=== PATIENT | female | born 1990 | race Two or more races ===

== ENCOUNTER 2018-11-11 11:31 | Emergency (ER) | payer OTHER ==
[2018-11-11 11:36] VITALS: BP 122/66
[2018-11-11] MEDS ORDERED: HYDROcod/ACETAM 5/325 MG TABLET PO STA (11:56)
[2018-11-11] MEDS ORDERED: PENICILLIN VK 250 MG TABLET PO STA (11:56)
--- NOTE | 2018-11-11 11:58 | ED Physician Documentation ---
History of Present Illness - Stated complaint Stated Complaint: TOOTH PAIN - Chief complaint Chief Complaint: Heent - History obtained from History obtained from: Patient - History of Present Illness Timing: How many days ago (2) Pain level max: 8 Pain level now: 7 - Additonal information Additional information: 28-year-old female presents to the emergency department stating that she broke her tooth left lower mandible 2 days ago. Now increased pain and swelling. Does not have a dentist. Worse with eating, nothing makes it better Review of Systems Constitutional: denies: Fever, Chills : denies: Now EGA Skin: denies: Rash Musculoskeletal: denies: Neck pain, Back pain Neurologic: denies: Headache PD PAST MEDICAL HISTORY - Past Medical History Past Medical History: No - Past Surgical History Past Surgical History: No - Present Medications Home Medications: Ambulatory Orders Medication Instructions Recorded Confirmed Hydrocodone/Acetaminophen 1 - 2 each PO Q6H PRN #10 tablet 11/11/18 [Hydrocodon-Acetaminophen 5-325] Penicillin V Potassium 500 mg PO Q6HR #40 tablet 11/11/18 - Allergies Allergies/Adverse Reactions: Allergies Allergy/AdvReac Type Severity Reaction Status Date / Time NSAIDS (Non-Steroidal Allergy Emesis Verified 11/11/18 11:35 Anti-Inflamma Sulfa (Sulfonamide Allergy Anaphylaxis Verified 11/11/18 11:35 Antibiotics) tramadol [From Ultram] Allergy Rash Verified 11/11/18 11:35 PD ED PE NORMAL - Vitals Vital signs reviewed: Yes - General General: Alert and oriented X 3, Well developed/nourished - HEENT HEENT: PERRL, Moist mucous membranes - Neck Neck: Supple, no meningeal sign, No adenopathy - Cardiac Cardiac: RRR, Strong equal pulses - Respiratory Respiratory: No respiratory distress, Clear bilaterally - Abdomen Abdomen: Soft, Non tender, Non distended - Derm Derm: Warm and dry - Neuro Neuro: Alert and oriented X 3 - Psych Psych: Normal mood, Normal affect PD ED PE EXPANDED - HEENT HEENT Visual: 1 - tenderness (cracked tooth, mild swelling) Results - Vitals Vitals: Vital Signs - 24 hr 11/11/18 11:34 Temperature 36.5 C Heart Rate 86 Respiratory 16 Rate Blood Pressure 122/66 O2 Saturation 98 Oxygen O2 Source Room air PD MEDICAL DECISION MAKING - ED course Complexity details: considered differential, d/w patient, d/w family ED course: 28-year-old female with a cracked tooth. Will place on antibiotics and pain medication for home. We will follow-up with the dentist for further care. She states she will call dentist in the morning for an appointment. Patient counseled regarding signs and symptoms for which I believe and urgent re- evaluation would be necessary. Patient with good understanding of and agreement to plan and is comfortable going home at this time This document was made in part using voice recognition software. While efforts are made to proofread this document, sound alike and grammatical errors may o ccur. Departure - Departure Disposition: 01 Home, Self Care Clinical Impression: Pain due to dental caries Condition: Good Instructions: ED Tooth Pain Follow-Up: your,dentist within 48 hours [Other] Prescriptions: Penicillin V Potassium 500 mg PO Q6HR #40 tablet Hydrocodone/Acetaminophen [Hydrocodon-Acetaminophen 5-325] 1 - 2 each PO Q6H PRN #10 tablet PRN Reason: pain Comments: Take all antibiotics until gone. Return if you worsen. Is important to follow- up with a dentist within the next 48 hours for further evaluation and care. Do not drink alcohol or drive while on narcotic pain medicine. Note that many narcotic pain relievers also contain tylenol/acetaminophen. Please ensure that your total dose of acetaminophen from all sources does not exceed 3 grams (3000mg) per day. You may constipated on this medication, take a stool softener such as "Colace" twice a day while you are on it. Also recommend a roeu-[id number]-[id number] laxative such as senna or MiraLAX any day that you do not have a bowel movement. If you received narcotic pain medication in the emergency department, do not drive or operate machinery for the next 24 hours. Discharge Date/Time: 11/11/18 12:06
== END 2018-11-11 12:06 | disposition home or self-care (01) ==
LOC: ED 11:31
DX: K02.9 Dental caries, unspecified (principal); K03.81 Cracked tooth
CPT/HCPCS: 99283; A9270

== ENCOUNTER 2019-10-06 19:51 | Emergency (ER) | payer OTHER ==
--- NOTE | 2019-10-06 20:03 | ED Physician Documentation ---
History of Present Illness - Stated complaint Stated Complaint: LIGHTHEADED,WEAKNESS,VOMITTING - Chief complaint Chief Complaint: General - History obtained from History obtained from: Patient - History of Present Illness Timing: How many weeks ago ("few weeks", per patient) Pain level max: 0 Pain level now: 0 Improved by: no ameliorating factors Worsened by: has felt worse since vomiting earlier today - Additonal information Additional information: c/o few weeks of lightheadedness, fatigue, generalized weakness. Symptoms have gradually progressed. Today she had episode of nausea and emesis x 1 and immediately after this felt significantly worse, with generalized myalgias. she no longer feels nauseas. She developed paresthesias of her hands and around her mouth this evening Review of Systems Constitutional: reports: Myalgias, Fatigue. denies: Fever, Chills, Sweats Cardiac: reports: Reviewed and negative Respiratory: reports: Reviewed and negative GI: reports: Nausea (resolved), Vomiting (resolved). denies: Abdominal Pain, Constipation, Diarrhea : reports: Frequency. denies: Dysuria Musculoskeletal: denies: Neck pain Neurologic: reports: Generalized weakness. denies: Focal weakness, Numbness, Headache PD PAST MEDICAL HISTORY - Past Medical History Past Medical History: Yes GI: GERD Psych: ADD/ADHD - Past Surgical History Past Surgical History: No - Present Medications Home Medications: Ambulatory Orders Medication Instructions Recorded Confirmed Hydrocodone/Acetaminophen 1 - 2 each PO Q6H PRN #10 tablet 11/11/18 [Hydrocodon-Acetaminophen 5-325] Penicillin V Potassium 500 mg PO Q6HR #40 tablet 11/11/18 LORazepam [Lorazepam] 0.5 - 1 mg PO TID PRN #20 tablet 10/06/19 - Allergies Allergies/Adverse Reactions: Allergies Allergy/AdvReac Type Severity Reaction Status Date / Time NSAIDS (Non-Steroidal Allergy Emesis Verified 10/06/19 20:00 Anti-Inflamma Sulfa (Sulfonamide Allergy Anaphylaxis Verified 10/06/19 20:00 Antibiotics) tramadol [From Ultram] Allergy Rash Verified 10/06/19 20:00 - Living Situation Living Situation: reports: With family Living Arrangement: reports: At home - Social History Does the pt smoke?: No Smoking Status: Never smoker PD ED PE NORMAL - Vitals Vital signs reviewed: Yes - General General: Alert and oriented X 3, Well developed/nourished, Other (appears anxious, hyperventilating) - HEENT HEENT: PERRL, Moist mucous membranes - Neck Neck: Supple, no meningeal sign - Cardiac Cardiac: No murmur - Respiratory Respiratory: No respiratory distress, Clear bilaterally - Abdomen Abdomen: Soft, Non tender PD ED PE EXPANDED - Cardiac Cardiac: Tachy, Regular Rhythm Results - Vitals Vitals: Vital Signs - 24 hr 10/06/19 21:35 Temperature 36.9 C Heart Rate 88 Respiratory 12 Rate Blood Pressure 111/70 O2 Saturation 99 Oxygen O2 Source Room air - Labs Labs: Laboratory Tests 10/06/19 10/06/19 20:30 20:30 WBC 10.4 RBC 4.19 L Hgb 11.3 L Hct 35.1 L MCV 83.8 MCH 27.0 MCHC 32.2 RDW 14.7 Plt Count 395 MPV 11.1 H Neut # (Auto) 7.8 H Lymph # (Auto) 1.7 Coles # (Auto) 0.6 Eos # (Auto) 0.1 Baso # (Auto) 0.1 Absolute Nucleated RBC 0.00 Nucleated RBC % 0.0 Sodium 138 Potassium 3.3 L Chloride 108 Carbon Dioxide 18 L Anion Gap 12.0 BUN 9 Creatinine 1.0 Estimated GFR (MDRD) 65 L Glucose 100 Calcium 8.6 Total Bilirubin 0.5 AST 22 ALT 26 Alkaline Phosphatase 70 Total Protein 7.1 Albumin 4.0 Globulin 3.1 Albumin/Globulin Ratio 1.3 Lipase 33 PD MEDICAL DECISION MAKING - ED course Complexity details: reviewed results, re-evaluated patient, considered differential, d/w patient Departure - Departure Disposition: 01 Home, Self Care Clinical Impression: Lightheadedness, Fatigue Condition: Good Instructions: ED Weakness [facility] Follow-Up: Umang uSe PA-C [Primary Care Provider] - Prescriptions: LORazepam [Lorazepam] 0.5 - 1 mg PO TID PRN #20 tablet PRN Reason: Anxiety Discharge Date/Time: 10/06/19 21:52
[2019-10-06] MEDS ORDERED: LORazepam 1 MG TABLET PO STA ×2 (20:20→21:45)
[2019-10-06 20:34] LABS: BASOPHILS # (AUTO) 0.1 10^3/uL (0.0-0.1); BASOPHILS % (AUTO) 1.2 %; EOSINOPHILS # (AUTO) 0.1 10^3/uL (0.0-0.7); EOSINOPHILS % (AUTO) 1.3 %; HGB - HEMOGLOBIN 11.3 g/dL (12.0-16.0); LYMPHOCYTES # (AUTO) 1.7 10^3/uL (1.5-3.5); LYMPHOCYTES % (AUTO) 16.2 %; MEAN CORPUSCULAR HGB CONC 32.2 g/dL (32.0-36.0); MEAN CORPUSCULAR VOLUME 83.8 fL (81.0-99.0); MEAN PLATELET VOLUME 11.1 fL (7.9-10.8); MONOCYTES # (AUTO) 0.6 10^3/uL (0.0-1.0); MONOCYTES % (AUTO) 5.7 %; NEUTROPHILS # (AUTO) 7.8 10^3/uL (1.5-6.6); NEUTROPHILS % (AUTO) 75.3 %; PLT - PLATELET COUNT 395 10^3/uL (130-450); RED BLOOD COUNT 4.19 10^6/uL (4.20-5.40); RED CELL DISTRIBUTION WIDTH 14.7 % (12.0-15.0); WHITE BLOOD COUNT 10.4 x10^3/uL (4.8-10.8)
[2019-10-06 20:48] LABS: ALBUMIN/GLOBULIN RATIO 1.3 (1.0-2.2); BILIRUBIN,TOTAL 0.5 mg/dL (0.2-1.0); CALCIUM 8.6 mg/dL (8.5-10.3); TOTAL PROTEIN 7.1 g/dL (6.7-8.2)
[2019-10-06 21:36] VITALS: BP 111/70
== END 2019-10-06 21:52 | disposition home or self-care (01) ==
LOC: ED 19:51
DX: R42 Dizziness and giddiness (principal); R53.83 Other fatigue; R11.2 Nausea with vomiting, unspecified
CPT/HCPCS: 36415; 80053; 83690; 85025; 99283; 99284; J8499

== ENCOUNTER 2019-12-13 08:07 | Emergency (ER) | payer OTHER ==
[2019-12-13 08:14] VITALS: BP 96/56
--- NOTE | 2019-12-13 08:36 | ED Physician Documentation ---
PD HPI URI - Stated complaint Stated Complaint: CHEST PAIN, NECK PAIN, FEVER, COUGH - Chief complaint Chief Complaint: Resp - History obtained from History obtained from: Patient - History of Present Illness Timing - onset: Yesterday Timing duration: Days (2) Timing details: Abrupt onset, Still present Associated symptoms: Fever, Nasal congestion, Dry cough, Chest pain (with cough and breathing), Dyspnea, Other (moderate headache). No: Sore throat, Swollen nodes, NVD Contributing factors: Sick contact (Her son was ill for the past week and diagnosed by nasal swab with influenza B 4 days ago. He has had some cough fevers and congestion but is starting to improve. He is just taken [id number] medicines.). No: Travel, Immunocompromised, COPD / asthma Similar symptoms before: Has not had sx before Review of Systems Constitutional: reports: Fever, Chills, Myalgias Nose: reports: Congestion Cardiac: denies: Chest pain / pressure Respiratory: reports: Cough GI: reports: Nausea, Vomiting. 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 HEENT: None Psych: ADD/ADHD Musculoskeletal: None Derm: None - Past Surgical History Past Surgical History: No - Present Medications Home Medications: Ambulatory Orders Medication Instructions Recorded Confirmed Benzonatate [Tessalon Perle] 100 mg PO TID PRN #30 capsule 12/13/19 Escitalopram Oxalate [Lexapro] 30 mg PO 12/13/19 Hydrocodone/Acetaminophen 1 each PO Q6H PRN #20 tablet 12/13/19 [Hydrocodon-Acetaminophen 5-325] Ondansetron Odt [Zofran] 4 mg TL Q6H PRN #20 tablet 12/13/19 Oseltamivir [Tamiflu] 75 mg PO BID #10 capsule 12/13/19 dexAMETHasone [Decadron] 4 mg PO DAILY #5 tablet 12/13/19 - Allergies Allergies/Adverse Reactions: Allergies Allergy/AdvReac Type Severity Reaction Status Date / Time NSAIDS (Non-Steroidal Allergy Emesis Verified 12/13/19 08:14 Anti-Inflamma Sulfa (Sulfonamide Allergy Anaphylaxis Verified 12/13/19 08:14 Antibiotics) tramadol [From Ultram] Allergy Rash Verified 12/13/19 08:14 - Social History Does the pt smoke?: No Smoking Status: Never smoker Does the pt drink ETOH?: No Does the pt have substance abuse?: No - Immunizations Immunizations are current?: Yes - POLST Patient has POLST: No PD ED PE NORMAL - Vitals Vital signs reviewed: Yes - General General: Alert and oriented X 3, No acute distress, Well developed/nourished - HEENT HEENT: Moist mucous membranes, Pharynx benign - Neck Neck: Supple, no meningeal sign, No adenopathy - Cardiac Cardiac: RRR, No murmur - Respiratory Respiratory: Clear bilaterally - Abdomen Abdomen: Soft, Non tender - Derm Derm: Normal color, Warm and dry - Neuro Neuro: Alert and oriented X 3, No motor deficit, Normal speech Results - Vitals Vitals: Oxygen O2 Source Room air - Labs Labs: Laboratory Tests 12/13/19 08:18 Influenza A (Rapid) Negative Influenza B (Rapid) POSITIVE H PD MEDICAL DECISION MAKING - ED course Complexity details: considered differential (symptoms c/w flu B), d/w patient Departure - Departure Disposition: 01 Home, Self Care Clinical Impression: Influenza B, Cough Chest pain Qualifiers: Chest pain type: other chest pain Qualified Code(s): R07.89 - Other chest pain Condition: Stable Record reviewed to determine appropriate education?: Yes Instructions: ED Flu Follow-Up: Umang Sue PA-C [Primary Care Provider] - Prescriptions: Benzonatate [Tessalon Perle] 100 mg PO TID PRN #30 capsule PRN Reason: Cough dexAMETHasone [Decadron] 4 mg PO DAILY #5 tablet Hydrocodone/Acetaminophen [Hydrocodon-Acetaminophen 5-325] 1 each PO Q6H PRN #20 tablet PRN Reason: pain Ondansetron Odt [Zofran] 4 mg TL Q6H PRN #20 tablet PRN Reason: Nausea / Vomiting Oseltamivir [Tamiflu] 75 mg PO BID #10 capsule Comments: You have influenza B. Your chest x-ray is clear so no signs of pneumonia to her at this time. We can help with the symptoms by using the Tamiflu antiviral and that can help take the edge off the symptoms. Decadron steroid for inflammation generally should help quite a bit as well. Ondansetron as needed for nausea. Tessalon if needed for cough. Stay well- hydrated and use Tylenol or ibuprofen for fevers and pains. Add hydrocodone if needed for worse pain. Recheck if not improving well over the next few days. Discharge Date/Time: 12/13/19 10:05
[2019-12-13] MEDS ORDERED: BENZONATATE 100 MG CAPSULE PO STA (08:51)
[2019-12-13] MEDS ORDERED: CHERRY SYRUP 10 ML UDC PO ONE (08:51)
[2019-12-13] MEDS ORDERED: ONDANSETRON ODT 4 MG TABLET TL STA (08:51)
[2019-12-13] MEDS ORDERED: DEXAMETHASONE 10 MG/ML VIAL PO STA (08:51)
[2019-12-13] MEDS ORDERED: HYDROcod/ACETAM 5/325 MG TABLET PO STA (08:51)
--- NOTE | 2019-12-13 09:40 | XRAY Report ---
Reason: dyspnea/ cough/chest pain Procedure Date: 12/13/2019 Accession Number: [id number] / [id number] Procedure: XR - Chest 2 View X-Ray CPT Code: 85160 Final Report FULL RESULT: EXAM: CHEST RADIOGRAPHY EXAM DATE: 12/13/2019 09:25 AM. CLINICAL HISTORY: Dyspnea/ cough/chest pain. COMPARISON: None. TECHNIQUE: 2 views. FINDINGS: Lungs/Pleura: No focal opacities evident. No pleural effusion. No pneumothorax. Normal volumes. Mediastinum: Heart and mediastinal contours are unremarkable. Other: Unremarkable bony structures. Surgical clips right upper quadrant. IMPRESSION: Normal 2-view chest radiography. RADIA
== END 2019-12-13 10:05 | disposition home or self-care (01) ==
LOC: ED 08:07
DX: J10.1 Influenza due to other identified influenza virus with other respiratory manifestations (principal); R07.89 Other chest pain
CPT/HCPCS: 71046; 87275; 87276; 99284; A9270; Q0162

== ENCOUNTER 2020-02-27 17:28 | Emergency (ER) | payer OTHER ==
[2020-02-27 18:00] LABS: BILIRUBIN,URINE NEGATIVE (NEGATIVE); GLUCOSE, URINE (UA) NEGATIVE (NEGATIVE); KETONES,URINE (UA) NEGATIVE (NEGATIVE); LEUKOCYTE ESTERASE, URINE NEGATIVE (NEGATIVE); NITRITE,URINE NEGATIVE (NEGATIVE); OCCULT BLOOD,URINE NEGATIVE (NEGATIVE); PH,URINE 6.5 PH (5.0-7.5); PROTEIN,URINE NEGATIVE (NEGATIVE); UROBILINOGEN,URINE 0.2 (NORMAL) E.U./dL (NORMAL)
[2020-02-27 18:03] LABS: CLARITY,URINE CLEAR (CLEAR)
[2020-02-27 18:04] LABS: HCG UR QUAL NEGATIVE
[2020-02-27] MEDS ORDERED: HYDROcod/ACETAM 5/325 MG TABLET PO STA (18:24)
[2020-02-27] MEDS ORDERED: ONDANSETRON ODT 4 MG TABLET TL STA (18:24)
--- NOTE | 2020-02-27 18:26 | ED Physician Documentation ---
PD HPI FEMALE - Stated complaint Stated Complaint: PELVIC/BACK PX - Chief complaint Chief Complaint: UTI - History obtained from History obtained from: Patient (79-year-old woman with history of E sure control, ovarian cysts. Last menses was about 2 weeks ago, slightly longer than normal but otherwise normal and at normal time. She had 2 days of pelvic pressure radiating to the back associated with mild nausea. Pain is worse if she bends forward or presses on the bladder area. No fevers.) Review of Systems Constitutional: denies: Fever, Chills GI: reports: Abdominal Pain, Nausea. 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 HEENT: None Psych: ADD/ADHD Musculoskeletal: None Derm: None - Past Surgical History Past Surgical History: No - Present Medications Home Medications: Ambulatory Orders Medication Instructions Recorded Confirmed Benzonatate [Tessalon Perle] 100 mg PO TID PRN #30 capsule 12/13/19 Escitalopram Oxalate [Lexapro] 30 mg PO 12/13/19 Hydrocodone/Acetaminophen 1 each PO Q6H PRN #20 tablet 12/13/19 [Hydrocodon-Acetaminophen 5-325] Ondansetron Odt [Zofran] 4 mg TL Q6H PRN #20 tablet 12/13/19 Oseltamivir [Tamiflu] 75 mg PO BID #10 capsule 12/13/19 dexAMETHasone [Decadron] 4 mg PO DAILY #5 tablet 12/13/19 Hydrocodone/Acetaminophen 1 - 2 each PO Q6H PRN #10 tablet 02/27/20 [Hydrocodon-Acetaminophen 5-325] - Allergies Allergies/Adverse Reactions: Allergies Allergy/AdvReac Type Severity Reaction Status Date / Time NSAIDS (Non-Steroidal Allergy Emesis Verified 02/27/20 17:37 Anti-Inflamma Sulfa (Sulfonamide Allergy Anaphylaxis Verified 02/27/20 17:37 Antibiotics) tramadol [From Ultram] Allergy Rash Verified 02/27/20 17:37 - Social History Does the pt smoke?: No Smoking Status: Never smoker Does the pt drink ETOH?: No Does the pt have substance abuse?: No - Immunizations Immunizations are current?: Yes - POLST Patient has POLST: No PD ED PE NORMAL - Vitals Vital signs reviewed: Yes - General General: Alert and oriented X 3, No acute distress - HEENT HEENT: PERRL, EOMI - Neck Neck: Supple, no meningeal sign, No bony TTP - Abdomen Abdomen: Normal bowel sounds, Soft, Other (Minimal pelvic tenderness, left slightly more than right. No surgical signs.) - Neuro Neuro: Alert and oriented X 3, Normal speech Results - Vitals Vitals: Vital Signs - 24 hr 02/27/20 17:37 Temperature 36.7 C Heart Rate 98 Respiratory 15 Rate Blood Pressure 111/66 O2 Saturation 98 Oxygen O2 Source Room air - Labs Labs: Laboratory Tests 02/27/20 02/27/20 17:47 17:47 Urine Color YELLOW Urine Clarity CLEAR Urine pH 6.5 Ur Specific [place] <=1.005 <=1.005 Urine Protein NEGATIVE Urine Glucose (UA) NEGATIVE Urine Ketones NEGATIVE Urine Occult Blood NEGATIVE Urine Nitrite NEGATIVE Urine Bilirubin NEGATIVE Urine Urobilinogen 0.2 (NORMAL) Ur Leukocyte Esterase NEGATIVE Ur Microscopic Review NOT INDICATED Urine Culture Comments NOT INDICATED Urine HCG, Qual NEGATIVE - Rads (name of study) Pelvic ultrasound Radiology: EMP read contemporaneously (Right ovarian 2.7 cm hemorrhagic cyst versus endometrioma. Uterine fibroid) Departure - Departure Disposition: 01 Home, Self Care Clinical Impression: Fibroid Ovarian cyst Qualifiers: Laterality: right Qualified Code(s): N83.201 - Unspecified ovarian cyst, right side Condition: Good Record reviewed to determine appropriate education?: Yes Instructions: ED Cyst Ovarian Follow-Up: [facility] [Provider Group] - Within 1 week Prescriptions: Hydrocodone/Acetaminophen [Hydrocodon-Acetaminophen 5-325] 1 - 2 each PO Q6H PRN #10 tablet PRN Reason: pain Comments: Today you were seen for pelvic pain, you were a little concerned about urinary tract infection but your urine was normal. An ultrasound showed both uterine fibroid as well as a right ovarian cyst versus the Shavon. Follow-up with the obstetrics/gynecology clinic for further evaluation and treatment. Return if worse.
--- NOTE | 2020-02-27 20:00 | Ultrasound Report ---
Reason: pelvic pain, L Procedure Date: 02/27/2020 Accession Number: [id number] / [id number] Procedure: US - Pelvic w/Transvag+Doppler Comp CPT Code: Final Report FULL RESULT: EXAM: PELVIC ULTRASOUND WITH DOPPLERS CLINICAL HISTORY: Pelvic pain, left. COMPARISON: None. TECHNIQUE: Realtime transabdominal imaging performed to identify the uterus and adnexa and as an overview of other pelvic structures, followed by transvaginal imaging for better assessment of the endometrium and adnexa, with static image documentation. Color flow imaging and Doppler spectral analysis was performed to evaluate blood flow to the ovaries given pelvic pain and clinical concern for ovarian torsion. FINDINGS: Uterus: 7.6 x 3.9 x 4.5 cm, volume 70.2 cc. Anteverted position. Normal overall size and echotexture. Bilateral Essure devices noted. Masses: There is a 1.3 x 1.3 x 1.4 cm anterior fundal intramural/submucosal fibroid. Endometrium: 9 mm. Normal. Cervix: Unremarkable. Right Ovary: 4.2 x 2.8 x 3.7 cm, volume 23.1 cc. Normal echotexture. Arterial and venous blood flow are present. PSV 11.2 cm/sec. RI 0.5. Adnexa: There is a 2.7 x 2.5 x 2.2 cm cyst within the ovary containing fluid-fluid levels. No flow seen within the cyst. Left Ovary: 3.1 x 1.7 x 2.4 cm, volume 6.5 cc. Normal echotexture. Arterial and venous blood flow are present. PSV 4.2 cm/sec. RI 0.6. Adnexa are unremarkable. Free Fluid: None. Other: None. IMPRESSION: 1. Right ovarian 2.7 cm hemorrhagic cyst versus endometrioma. 2. Arterial and venous blood flow are present to the ovaries bilaterally. 3. Uterine fibroid. 4. Essure devices noted. RADIA
[2020-02-27] MEDS ORDERED: HYDROcod/ACET 5/325 Prepack 4 PO STA (20:12)
[2020-02-27 20:50] VITALS: BP 112/68
== END 2020-02-27 20:49 | disposition home or self-care (01) ==
LOC: ED 17:28
DX: D25.9 Leiomyoma of uterus, unspecified (principal); N83.201 Unspecified ovarian cyst, right side; Z97.5 Presence of (intrauterine) contraceptive device
CPT/HCPCS: 76830; 76856; 81003; 81025; 93975; 99284; A9270; Q0162; 81001; 87086

== ENCOUNTER 2020-03-09 17:20 | Emergency (ER) | payer OTHER ==
[2020-03-09 17:26] VITALS: BP 115/72
--- NOTE | 2020-03-09 17:37 | ED Physician Documentation ---
PD HPI UPPER EXT INJURY - Stated complaint Stated Complaint: L HAND LAC - Chief complaint Chief Complaint: Laceration - History obtained from History obtained from: Patient - History of Present Illness Location: Left, Finger (Thumb) Type of injury: Laceration Where injury occurred: Home Timing - onset: How many hours ago (1) Timing - duration: Hours (1) Timing - details: Abrupt onset Pain level max: 2 Pain level now: 1 Improved by: Rest Worsened by: Moving, Palpating - Additonal information Additional information: Patient is right-handed. Tetanus up-to-date. 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 HEENT: None Psych: ADD/ADHD Musculoskeletal: None Derm: None - Past Surgical History Past Surgical History: No - Present Medications Home Medications: Ambulatory Orders Medication Instructions Recorded Confirmed Escitalopram [Lexapro] 30 mg PO DAILY 03/09/20 03/09/20 LORazepam [Ativan] 0.5 mg PO Q6H PRN 03/09/20 03/09/20 Lisdexamfetamine Dimesylate 30 mg PO DAILY 03/09/20 03/09/20 [Vyvanse] - Allergies Allergies/Adverse Reactions: Allergies Allergy/AdvReac Type Severity Reaction Status Date / Time NSAIDS (Non-Steroidal Allergy Emesis Verified 03/09/20 17:37 Anti-Inflamma Sulfa (Sulfonamide Allergy Anaphylaxis Verified 03/09/20 17:37 Antibiotics) tramadol [From Ultram] Allergy Rash Verified 03/09/20 17:37 - Social History Does the pt smoke?: No Smoking Status: Never smoker Does the pt drink ETOH?: No Does the pt have substance abuse?: No - Immunizations Immunizations are current?: Yes - POLST Patient has POLST: No PD ED PE NORMAL - Vitals Vital signs reviewed: Yes - General General: Alert and oriented X 3, No acute distress - HEENT HEENT: Moist mucous membranes - Derm Derm: Warm and dry - Neuro Neuro: Alert and oriented X 3 PD ED PE EXPANDED - Extremities FREDDY UE/Hands Visual: 1 - laceration (Superficial, 1 cm. Neurovascular intact. No bleeding.) Results - Vitals Vitals: Vital Signs - 24 hr 03/09/20 17:23 Temperature 36.5 C Heart Rate 125 H Respiratory 16 Rate Blood Pressure 115/72 O2 Saturation 99 Oxygen O2 Source Room air Procedures - Laceration (location) Left thumb Length in cm: 1 Wound type: Linear, Superficial, Clean Neurovascular status: Sensory intact, Motor intact, Vascular intact Tendon involvement: Tendon intact Wound Preparation: Irrigated copiously NS Skin layer closure: Dermabond Other: Patient tolerated well, No complications, Neurovascular intact, Tetanus UTD Complexity: Simple PD MEDICAL DECISION MAKING - ED course Complexity details: considered differential, d/w patient ED course: Wound repaired with Dermabond. No indication for sutures. Warnings of infection and instructions on wound care given at bedside. Also counseled on how to minimize scarring. Patient counseled regarding signs and symptoms for which I believe and urgent re-evaluation would be necessary. Patient with good understanding of and agreement to plan and is comfortable going home at this time This document was made in part using voice recognition software. While efforts are made to proofread this document, sound alike and grammatical errors may occur. Patient is right-handed and her tetanus is up-to-date Departure - Departure Disposition: 01 Home, Self Care Clinical Impression: Thumb laceration Qualifiers: Encounter type: initial encounter Damage to nail status: unspecified Foreign body presence: without foreign body Laterality: left Qualified Code(s): S61.012A - Laceration without foreign body of left thumb without damage to nail, initial encounter Condition: Good Instructions: ED Laceration Ext Skin Glue Follow-Up: Ofelia Lazaro ARNP, GEOCHEMIST-C [Primary Care Provider] - As Needed Comments: Return if you notice redness, swelling or drainage from the wound. The glue will dissolve and fall off on its own. Keep the wound clean. Do not apply ointment as this may dissolve the glue. Discharge Date/Time: 03/09/20 17:59
[2020-03-09] MEDS ORDERED: ACETAMINOPHEN 325 MG TABLET PO STA (17:53)
== END 2020-03-09 17:59 | disposition home or self-care (01) ==
LOC: ED 17:20
DX: S61.012A Laceration without foreign body of left thumb without damage to nail, initial encounter (principal); W26.0XXA Contact with knife, initial encounter; Y92.009 Unspecified place in unspecified non-institutional (private) residence as the place of occurrence of the external cause
CPT/HCPCS: 12001; 99282; A9270

== ENCOUNTER 2020-05-12 07:00 | Outpatient (CLI) | payer OTHER ==
[2020-05-12 12:28] LABS: BUN - BLOOD UREA NITROGEN 9 mg/dL (6-20); CALCIUM 8.6 mg/dL (8.5-10.3); CARBON DIOXIDE - CO2 24 mmol/L (21-32); CHLORIDE 107 mmol/L (101-111); CHOL/HDL RATIO 3.3 (<4.4); CHOLESTEROL 190 mg/dL; CREATININE 0.9 mg/dL (0.4-1.0); GLUCOSE 96 mg/dL (70-100); HDL CHOLESTEROL 58 mg/dL; LDL CHOLESTEROL,CALCULATED 108 mg/dL; LDL/HDL RATIO 1.9 (<4.4); SODIUM 138 mmol/L (135-145); VLDL CHOLESTEROL 24 mg/dL
[2020-05-12 12:34] LABS: THYROID STIMULATING HORMONE 2.96 uIU/mL (0.34-5.60)
[2020-05-12 12:37] LABS: FREE T3 3.63 pg/mL (2.5-3.9)
[2020-05-12 12:38] LABS: FREE T4 (FREE THYROXINE) 0.64 ng/dL (0.58-1.64)
== END 2020-05-12 23:59 | disposition home or self-care (01) ==
LOC: LAB.WCP 07:00
PROVIDERS: ATTEND Psychiatry & Neurology Psychiatry
DX: Z79.899 Other long term (current) drug therapy (principal)
CPT/HCPCS: 36415; 80048; 80061; 83721; 84439; 84443; 84481

== ENCOUNTER 2020-06-27 14:00 | Emergency (ER) | payer OTHER ==
--- NOTE | 2020-06-27 15:17 | ED Physician Documentation ---
PD HPI SKIN - Stated complaint Stated Complaint: RASH - BILAT ARMS, NECK, FACE - Chief complaint Chief Complaint: Wound - History obtained from History obtained from: Patient - History of Present Illness Timing - onset: How many weeks ago (4) Timing - duration: Weeks (4) Timing - details: Gradual onset, Still present, Waxing and waning Location: Face, RUE, LUE Quality / character: Itchy, Discolored, Crusted, Swelling Associated symptoms: Facial swelling. No: Fever, Myalgias, Joint pain, Headache, Dyspnea, Abd pain, N/V/D, Urinary sx Contributing factors: Unknown. No: Exposed to medication, Exposed to food, Exposed to soap / lotion, Exposed to Poison daria/oak, Insect bite /sting, Recent illness Similar symptoms before: No diagnosis Recently seen: Clinic - Additional information Additional information: 29-year-old female reports that she was placed on to some prednisone for a rash that she had in her elbows and around her eyes and she improved with the prednisone and then several days later began to develop symptoms again. She felt that the symptoms were almost completely gone. Review of Systems Constitutional: denies: Fever Eyes: reports: Irritation. denies: Decreased vision Ears: denies: Ear pain Nose: reports: Congestion. 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 : None HEENT: None Psych: ADD/ADHD Musculoskeletal: None Derm: None - Past Surgical History Past Surgical History: No General: Cholecystectomy Ortho: Shoulder arthroplasty /VICE PRESIDENT UNDERWRITING: Other - Present Medications Home Medications: Ambulatory Orders Medication Instructions Recorded Confirmed Escitalopram [Lexapro] 30 mg PO DAILY 03/09/20 03/09/20 LORazepam [Ativan] 0.5 mg PO Q6H PRN 03/09/20 03/09/20 Lisdexamfetamine Dimesylate 30 mg PO DAILY 03/09/20 03/09/20 [Vyvanse] predniSONE [Deltasone] 10 mg PO ONCE #26 tablet 06/27/20 - Allergies Allergies/Adverse Reactions: Allergies Allergy/AdvReac Type Severity Reaction Status Date / Time NSAIDS (Non-Steroidal Allergy Emesis Verified 06/27/20 14:10 Anti-Inflamma Sulfa (Sulfonamide Allergy Anaphylaxis Verified 06/27/20 14:10 Antibiotics) tramadol [From Ultram] Allergy Rash Verified 06/27/20 14:10 - Social History Does the pt smoke?: No Smoking Status: Never smoker Does the pt drink ETOH?: No Does the pt have substance abuse?: No - Immunizations Immunizations are current?: Yes - POLST Patient has POLST: No PD ED PE NORMAL - Vitals Vital signs reviewed: Yes (normal ) - General General: Alert and oriented X 3, No acute distress, Well developed/nourished - HEENT HEENT: Atraumatic, PERRL, EOMI, Ears normal, Moist mucous membranes, Pharynx benign, Dentition benign, Other (There is superficial erythema to the eye lids bilaterally ) - Neck Neck: Supple, no meningeal sign, No bony TTP - Cardiac Cardiac: RRR, No murmur - Respiratory Respiratory: No respiratory distress, Clear bilaterally - Abdomen Abdomen: Soft, Non tender - Back Back: No CVA TTP, No spinal TTP - Derm Derm: Normal color, Warm and dry, Other (There is a petechial rash in the antecubital bilaterally and on the right side of the neck. Consistent with atopic dermatitis or eczema. 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, No motor deficit, No sensory deficit, Normal speech Eye Opening: Spontaneous Motor: Obeys Commands Verbal: Oriented GCS Score: 15 - Psych Psych: Normal mood, Normal affect Results - Vitals Vitals: Vital Signs - 24 hr 06/27/20 06/27/20 14:05 15:34 Temperature 36.7 C 36.6 C Heart Rate 101 H 88 Respiratory 12 16 Rate Blood Pressure 93/69 97/62 O2 Saturation 100 99 Oxygen O2 Source Room air PD MEDICAL DECISION MAKING - ED course Complexity details: reviewed old records, considered differential, d/w patient ED course: 29-year-old female with a facial rash and antecubital rash consistent with atopic dermatitis does not have a trigger for this she does have a family history of this she is placed back on prednisone on an 8-day taper. Departure - Departure Disposition: 01 Home, Self Care Clinical Impression: Atopic dermatitis Qualifiers: Atopic dermatitis type: flexural Qualified Code(s): L20.89 - Other atopic dermatitis Condition: Stable Instructions: ED Dermatitis Atopic Eczema Follow-Up: Ofelia Lazaro ARNP, FELLER MACHINE OPERATOR-C [Primary Care Provider] - Prescriptions: predniSONE [Deltasone] 10 mg PO ONCE #26 tablet Discharge Date/Time: 06/27/20 15:35
[2020-06-27 15:36] VITALS: BP 97/62
== END 2020-06-27 15:35 | disposition home or self-care (01) ==
LOC: ED 14:00
DX: L20.89 Other atopic dermatitis (principal); Z84.0 Family history of diseases of the skin and subcutaneous tissue
CPT/HCPCS: 99282; 99284

== ENCOUNTER 2020-08-24 12:45 | Emergency (ER) | payer OTHER ==
[2020-08-24 14:59] LABS: ALBUMIN 3.4 g/dL (3.2-5.5); ALBUMIN/GLOBULIN RATIO 1.2 (1.0-2.2); ALKALINE PHOSPHATASE 44 IU/L (42-121); ALT ALANINE AMINOTRANSFERASE 14 IU/L (10-60); AST ASPARTATE AMINOTRANSFERASE 17 IU/L (10-42); BILIRUBIN,TOTAL 0.3 mg/dL (0.2-1.0); BUN - BLOOD UREA NITROGEN 10 mg/dL (6-20); CALCIUM 8.5 mg/dL (8.5-10.3); CARBON DIOXIDE - CO2 26 mmol/L (21-32); CHLORIDE 104 mmol/L (101-111); CREATININE 0.8 mg/dL (0.4-1.0); GLUCOSE 121 mg/dL (70-100); SODIUM 139 mmol/L (135-145); TOTAL PROTEIN 6.2 g/dL (6.7-8.2)
[2020-08-24 15:00] LABS: CRP - C-REACTIVE PROTEIN < 1.0 mg/dL (0-1.0)
--- NOTE | 2020-08-24 15:05 | ED Physician Documentation ---
History of Present Illness - Stated complaint Stated Complaint: HEAD PX/DIZZY - Chief complaint Chief Complaint: General - History obtained from History obtained from: Patient - History of Present Illness Timing: Other (several months) Pain level max: 7 Pain level now: 4 - Additonal information Additional information: 30-year-old female presents to the emergency department stating that she has had intermittent rashes to her neck and head and face for the past several months. Resolves with steroids. Has also had intermittent pain from her neck down to her right arm. Nothing makes it better or worse. Intermittent headaches. No visual changes. No taste changes. She stopped prednisone last week and the symptoms recurred. She is awaiting a dermatology referral. Has been being followed by this by the [facility]. 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 - Past Surgical History Past Surgical History: No General: Cholecystectomy Ortho: Shoulder arthroplasty /HEALTHCARE APPLICATIONS ANALYST: Other - Present Medications Home Medications: Ambulatory Orders Medication Instructions Recorded Confirmed Escitalopram [Lexapro] 30 mg PO DAILY 03/09/20 03/09/20 LORazepam [Ativan] 0.5 mg PO Q6H PRN 03/09/20 03/09/20 Lisdexamfetamine Dimesylate 30 mg PO DAILY 03/09/20 03/09/20 [Vyvanse] predniSONE [Deltasone] 10 mg PO ONCE #26 tablet 06/27/20 HYDROcod/ACETAM 5/325 [[place] 5/325] 1 - 2 ea PO Q6H PRN #12 tablet 08/24/20 predniSONE [Deltasone] 10 mg PO [id number] #42 tab 08/24/20 - Allergies Allergies/Adverse Reactions: Allergies Allergy/AdvReac Type Severity Reaction Status Date / Time NSAIDS (Non-Steroidal Allergy Emesis Verified 08/24/20 13:00 Anti-Inflamma Sulfa (Sulfonamide Allergy Anaphylaxis Verified 08/24/20 13:00 Antibiotics) tramadol [From Ultram] Allergy Rash Verified 08/24/20 13:00 - Social History Does the pt smoke?: No Smoking Status: Never smoker Does the pt drink ETOH?: No Does the pt have substance abuse?: No - Immunizations Immunizations are current?: Yes - POLST Patient has POLST: No PD ED PE NORMAL - Vitals Vital signs reviewed: Yes - General General: Alert and oriented X 3, No acute distress - HEENT HEENT: PERRL, Moist mucous membranes - Neck Neck: Supple, no meningeal sign, No bony TTP - Cardiac Cardiac: RRR, Strong equal pulses - Respiratory Respiratory: No respiratory distress, Clear bilaterally - Abdomen Abdomen: Soft, Non tender, Non distended - Derm Derm: Warm and dry, Other (mild rash to the B neck. maculopapular. no vesicles. 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, No motor deficit, No sensory deficit, Normal speech - Psych Psych: Normal mood, Normal affect Results - Vitals Vitals: Vital Signs - 24 hr 08/24/20 08/24/20 12:55 15:42 Temperature 36.7 C 36.7 C Heart Rate 96 88 Respiratory 18 18 Rate Blood Pressure 111/59 L 92/53 L O2 Saturation 98 98 Oxygen O2 Source Room air - Labs Labs: Laboratory Tests 08/24/20 08/24/20 08/24/20 14:33 14:33 14:33 WBC 6.9 RBC 3.83 L Hgb 9.1 L Hct 30.3 L MCV 79.1 L MCH 23.8 L MCHC 30.0 L RDW 16.0 H Plt Count 290 MPV 11.8 H Neut # (Auto) 4.6 Lymph # (Auto) 1.7 [place] # (Auto) 0.5 Eos # (Auto) 0.0 Baso # (Auto) 0.0 Absolute Nucleated RBC 0.00 Nucleated RBC % 0.0 ESR 19 Sodium 139 Potassium 3.5 Chloride 104 Carbon Dioxide 26 Anion Gap 9.0 BUN 10 Creatinine 0.8 Estimated GFR (MDRD) 83 L Glucose 121 H Calcium 8.5 Total Bilirubin 0.3 AST 17 ALT 14 Alkaline Phosphatase 44 C-Reactive Protein < 1.0 Total Protein 6.2 L Albumin 3.4 Globulin 2.8 Albumin/Globulin Ratio 1.2 PD MEDICAL DECISION MAKING - ED course Complexity details: reviewed old records, reviewed results, re-evaluated patient, considered differential, d/w patient ED course: 30-year-old female presents to the emergency department with symptoms of unclear etiology. Possible rheumatological disorder? Possible autoimmune disease? Normal sed rate and CRP. She is anemic, this is a chronic ongoing issue for her secondary to uterine fibroids. She does seem to improve on steroids, therefore we will place her back on a steroid taper and have her follow-up closely with her doctor this week. Patient is well-appearing, nontoxic. Afebrile. No focal neurological deficits. Patient counseled regarding signs and symptoms for which I believe and urgent re-evaluation would be necessary. Patient with good understanding of and agreement to plan and is comfortable going home at this time This document was made in part using voice recognition software. While efforts are made to proofread this document, sound alike and grammatical errors may occur. Departure - Departure Disposition: Home, Self Care Clinical Impression: Rash Anemia Qualifiers: Anemia type: unspecified type Qualified Code(s): D64.9 - Anemia, unspecified Condition: Good Instructions: ED Anemia Type Not Specified, ED Dermatitis Non Specific Rash Follow-Up: Ofelia Lazaro ARNP, JUNIOR ACCOUNT EXECUTIVE-C [Primary Care Provider] - Within 1 week Prescriptions: predniSONE [Deltasone] 10 mg PO [id number] #42 tab HYDROcod/ACETAM 5/325 [[place] 5/325] 1 - 2 ea PO Q6H PRN #12 tablet PRN Reason: Pain Comments: The cause of your symptoms is unclear today. Your hemoglobin is down to 9.1 today. This should be rechecked with your doctor this week. You should have a workup for autoimmune diseases as well with your doctor. Rheumatology may be helpful as well.
[2020-08-24 15:19] LABS: BASOPHILS % (AUTO) 0.6 %; EOSINOPHILS % (AUTO) 0.3 %; HGB - HEMOGLOBIN 9.1 g/dL (12.0-16.0); LYMPHOCYTES # (AUTO) 1.7 10^3/uL (1.5-3.5); LYMPHOCYTES % (AUTO) 24.9 %; MEAN CORPUSCULAR HEMOGLOBIN 23.8 pg (27.0-31.0); MEAN CORPUSCULAR VOLUME 79.1 fL (81.0-99.0); MEAN PLATELET VOLUME 11.8 fL (7.9-10.8); MONOCYTES # (AUTO) 0.5 10^3/uL (0.0-1.0); MONOCYTES % (AUTO) 7.2 %; NEUTROPHILS # (AUTO) 4.6 10^3/uL (1.5-6.6); NEUTROPHILS % (AUTO) 66.7 %; PLT - PLATELET COUNT 290 10^3/uL (130-450); RED BLOOD COUNT 3.83 10^6/uL (4.20-5.40); WHITE BLOOD COUNT 6.9 x10^3/uL (4.8-10.8)
[2020-08-24 15:43] VITALS: BP 92/53
== END 2020-08-24 15:54 | disposition home or self-care (01) ==
LOC: ED 12:45
DX: R21 Rash and other nonspecific skin eruption (principal); D64.9 Anemia, unspecified; D25.9 Leiomyoma of uterus, unspecified
CPT/HCPCS: 36415; 80053; 85025; 85651; 86140; 99283; 99284

== ENCOUNTER 2020-09-02 08:00 | Outpatient (CLI) | payer OTHER ==
[2020-09-02 18:13] LABS: BASOPHILS % (AUTO) 0.3 %; EOSINOPHILS % (AUTO) 0.2 %; HGB - HEMOGLOBIN 9.3 g/dL (12.0-16.0); LYMPHOCYTES # (AUTO) 1.8 10^3/uL (1.5-3.5); LYMPHOCYTES % (AUTO) 17.5 %; MEAN CORPUSCULAR HEMOGLOBIN 23.8 pg (27.0-31.0); MEAN CORPUSCULAR HGB CONC 30.1 g/dL (32.0-36.0); MEAN PLATELET VOLUME 11.8 fL (7.9-10.8); MONOCYTES % (AUTO) 9.3 %; NEUTROPHILS # (AUTO) 7.4 10^3/uL (1.5-6.6); NEUTROPHILS % (AUTO) 71.2 %; PLT - PLATELET COUNT 307 10^3/uL (130-450); RED BLOOD COUNT 3.91 10^6/uL (4.20-5.40); RED CELL DISTRIBUTION WIDTH 16.3 % (12.0-15.0); WHITE BLOOD COUNT 10.4 x10^3/uL (4.8-10.8)
[2020-09-02 18:53] LABS: FERRITIN 2.5 ng/mL (11.0-306.8)
[2020-09-02 19:25] LABS: % IRON SATURATION 2 % (20-50); IRON 12 ug/dL (28-170); TOTAL IRON BINDING CAPACITY 493 ug/dL (250-450); TRANSFERRIN 352 mg/dL (192-382)
== END 2020-09-02 23:59 | disposition home or self-care (01) ==
LOC: LAB.WCP 08:00
PROVIDERS: ATTEND Nurse Practitioner
DX: D64.9 Anemia, unspecified (principal)
CPT/HCPCS: 36415; 82607; 82728; 83540; 84466; 85025

== ENCOUNTER 2020-09-08 10:37 | Outpatient (CLI) | payer OTHER ==
[2020-09-08 18:53] LABS: RHEUMATOID FACTOR NEGATIVE (Negative)
== END 2020-09-08 23:59 | disposition home or self-care (01) ==
LOC: LAB.WCP 10:37
PROVIDERS: ATTEND Family Medicine
DX: R53.83 Other fatigue (principal); M25.50 Pain in unspecified joint
CPT/HCPCS: 36415; 84443; 85651; 86038; 86140; 86430

== ENCOUNTER 2020-11-06 08:00 | Outpatient (CLI) | payer OTHER ==
[2020-11-06 12:07] LABS: BASOPHILS # (AUTO) 0.1 10^3/uL (0.0-0.1); BASOPHILS % (AUTO) 1.3 %; EOSINOPHILS # (AUTO) 0.3 10^3/uL (0.0-0.7); EOSINOPHILS % (AUTO) 7.5 %; HGB - HEMOGLOBIN 11.5 g/dL (12.0-16.0); LYMPHOCYTES # (AUTO) 1.3 10^3/uL (1.5-3.5); LYMPHOCYTES % (AUTO) 33.8 %; MEAN CORPUSCULAR HEMOGLOBIN 27.2 pg (27.0-31.0); MEAN CORPUSCULAR HGB CONC 32.5 g/dL (32.0-36.0); MEAN CORPUSCULAR VOLUME 83.7 fL (81.0-99.0); MEAN PLATELET VOLUME 12.6 fL (7.9-10.8); MONOCYTES # (AUTO) 0.4 10^3/uL (0.0-1.0); MONOCYTES % (AUTO) 10.1 %; NEUTROPHILS # (AUTO) 1.8 10^3/uL (1.5-6.6); PLT - PLATELET COUNT 186 10^3/uL (130-450); RED BLOOD COUNT 4.23 10^6/uL (4.20-5.40); RED CELL DISTRIBUTION WIDTH 16.8 % (12.0-15.0); WHITE BLOOD COUNT 3.9 x10^3/uL (4.8-10.8)
[2020-11-06 12:56] LABS: % IRON SATURATION 26 % (20-50); IRON 93 ug/dL (28-170); TOTAL IRON BINDING CAPACITY 356 ug/dL (250-450); TRANSFERRIN 254 mg/dL (192-382)
[2020-11-06 13:12] LABS: FERRITIN 12.4 ng/mL (11.0-306.8)
[2020-11-06 13:13] LABS: PROLACTIN 129.07 ng/mL
== END 2020-11-06 23:59 | disposition home or self-care (01) ==
LOC: LAB.WCP 08:00
PROVIDERS: ATTEND Nurse Practitioner
DX: D64.9 Anemia, unspecified (principal); Z79.899 Other long term (current) drug therapy
CPT/HCPCS: 36415; 82607; 82728; 83540; 84146; 84466; 85025

== ENCOUNTER 2021-01-27 10:43 | Outpatient (CLI) | payer OTHER | END 2021-01-27 23:59 | disposition home or self-care (01) | LOC: LAB.WCP 10:43 | PROVIDERS: ATTEND Psychiatry & Neurology Psychiatry | DX: Z79.899 Other long term (current) drug therapy (principal) | CPT/HCPCS: 36415; 84146 ==

== ENCOUNTER 2021-04-06 09:13 | Outpatient (CLI) | payer OTHER ==
[2021-04-06 14:45] LABS: CHOL/HDL RATIO 3.3 (<4.4); CHOLESTEROL 163 mg/dL; HDL CHOLESTEROL 49 mg/dL; LDL CHOLESTEROL,CALCULATED 85 mg/dL; LDL/HDL RATIO 1.7 (<4.4); TRIGLYCERIDES 143 mg/dL; VLDL CHOLESTEROL 29 mg/dL
[2021-04-06 16:56] LABS: ESTIMATED AVERAGE GLUCOSE 105 mg/dL (70-100); HEMOGLOBIN A1c% 5.3 % (4.27-6.07)
== END 2021-04-06 23:59 | disposition home or self-care (01) ==
LOC: LAB.WCP 09:13
PROVIDERS: ATTEND Psychiatry & Neurology Psychiatry
DX: Z79.899 Other long term (current) drug therapy (principal)
CPT/HCPCS: 36415; 80061; 83036; 83721